=== PATIENT | male | born 1965 | race Caucasian/White ===

== ENCOUNTER 2017-06-25 16:50 | Inpatient (IN) | payer BC ==
[2017-06-25] MEDS ORDERED: ONDANSETRON PF 4 MG/2 ML VIAL. IV (17:45)
[2017-06-25] MEDS ORDERED: DEXTROSE 50% 25 GM / 50ML DISP.SYRIN. IV (17:45)
[2017-06-25] MEDS ORDERED: cefTRIAXone SODIUM 2 GM in IV DEXTROSE 5% 100 ML IV (18:00)
[2017-06-25] MEDS ORDERED: VANCOMYCIN 1.25 GM in IV DEXTROSE 5% 250 ML IV (18:00)
[2017-06-25] MEDS: cefTRIAXone IV Push 2 GM VIAL. IVP (20:04)
[2017-06-25] MEDS: VANCOMYCIN PER PHARMACY MC (20:12)
[2017-06-25 21:21] LABS: POC GLUCOSE 218 mg/dL (70-99)
[2017-06-25] MEDS: VANCOMYCIN 2 GM in IV DEXTROSE 5 %-0.2 % NACL 500 ML IV (22:13)
[2017-06-25] MEDS: HEPARIN PF for SUB-Q USE 5,000 UNIT/0.5 ML VIAL. SQ (22:22)
[2017-06-26] MEDS: VANCOMYCIN 2 GM in IV DEXTROSE 5 %-0.2 % NACL 500 ML IV (06:26)
[2017-06-26] MEDS: HEPARIN PF for SUB-Q USE 5,000 UNIT/0.5 ML VIAL. SQ ×3 (06:30→22:40)
[2017-06-26 06:56] LABS: POC GLUCOSE 212 mg/dL (70-99)
[2017-06-26 07:22] LABS: POC GLUCOSE 246 mg/dL (70-99)
[2017-06-26] MEDS: INSULIN ASPART 300 UNITS/3 ML INSULN.PEN SQ ×3 (07:59→17:26)
[2017-06-26 08:01] LABS: ADD MAN DIFF? NO
[2017-06-26 08:11] LABS: BASO # 0.1 x10^3/uL (0.0-0.2); BASO % 1 % (0-3); EOS # 0.2 x10^3/uL (0.0-0.7); EOS % 2 % (0-3); HEMATOCRIT 38.8 % (39.0-53.0); HEMOGLOBIN 13.1 g/dL (13.0-17.5); LYMPH # 1.3 x10^3/uL (1.0-4.8); LYMPH % 17 % (24-48); MEAN CORPUSCULAR HEMOGLOBIN 30 pg (25-35); MEAN CORPUSCULAR HGB CONC 34 g/dL (31-37); MEAN CORPUSCULAR VOLUME 88 fL (79-100); MONO # 0.7 x10^3/uL (0.0-1.1); MONO % 9 % (0-9); NEUT # 5.6 x10^3uL (1.8-7.7); NEUT % 71 % (31-73); PLATELET COUNT 269 x10^3/uL (140-400); RED BLOOD COUNT 4.43 x10^6/uL (4.30-5.70); RED CELL DISTRIBUTION WIDTH 13.6 % (11.5-14.5); WHITE BLOOD COUNT 7.8 x10^3/uL (4.0-11.0)
[2017-06-26 08:18] LABS: ANION GAP 9 (6-14); BLOOD UREA NITROGEN 10 mg/dL (8-26); CALCIUM 8.6 mg/dL (8.5-10.1); CARBON DIOXIDE 27 mmol/L (21-32); CHLORIDE 100 mmol/L (98-107); GFR 78.2; GLUCOSE 255 mg/dL (70-99); POTASSIUM 4.3 mmol/L (3.5-5.1); SODIUM 136 mmol/L (136-145)
[2017-06-26 11:11] LABS: POC GLUCOSE 244 mg/dL (70-99)
[2017-06-26 16:33] LABS: POC GLUCOSE 193 mg/dL (70-99)
[2017-06-26] MEDS: ALTEPLASE 2 MG VIAL INT CAT (17:16)
[2017-06-26] MEDS: LACTOBACILLUS RHAMNOSUS GG 1 CAPSULE. PO (20:42)
[2017-06-26 21:08] LABS: POC GLUCOSE 227 mg/dL (70-99)
[2017-06-27] MEDS: HEPARIN PF for SUB-Q USE 5,000 UNIT/0.5 ML VIAL. SQ ×2 (06:27→14:12)
[2017-06-27 06:38] LABS: ADD MAN DIFF? NO
[2017-06-27 07:17] LABS: BASO # 0.1 x10^3/uL (0.0-0.2); BASO % 1 % (0-3); EOS # 0.2 x10^3/uL (0.0-0.7); EOS % 4 % (0-3); HEMOGLOBIN 13.2 g/dL (13.0-17.5); LYMPH # 1.5 x10^3/uL (1.0-4.8); LYMPH % 23 % (24-48); MEAN CORPUSCULAR HEMOGLOBIN 29 pg (25-35); MEAN CORPUSCULAR HGB CONC 33 g/dL (31-37); MEAN CORPUSCULAR VOLUME 87 fL (79-100); MONO # 0.6 x10^3/uL (0.0-1.1); MONO % 10 % (0-9); NEUT # 4.2 x10^3uL (1.8-7.7); NEUT % 63 % (31-73); PLATELET COUNT 265 x10^3/uL (140-400); RED BLOOD COUNT 4.62 x10^6/uL (4.30-5.70); RED CELL DISTRIBUTION WIDTH 13.6 % (11.5-14.5); WHITE BLOOD COUNT 6.6 x10^3/uL (4.0-11.0)
[2017-06-27 07:18] LABS: ANION GAP 12 (6-14); BLOOD UREA NITROGEN 13 mg/dL (8-26); CARBON DIOXIDE 25 mmol/L (21-32); CHLORIDE 101 mmol/L (98-107); CREATININE 0.9 mg/dL (0.7-1.3); GFR 88.3; GLUCOSE 231 mg/dL (70-99); POTASSIUM 3.9 mmol/L (3.5-5.1); SODIUM 138 mmol/L (136-145)
[2017-06-27 07:32] LABS: POC GLUCOSE 229 mg/dL (70-99)
[2017-06-27] MEDS: MULTIVITAMIN with MINERAL TABLET. PO (08:34)
[2017-06-27] MEDS: ASCORBIC ACID 500 MG TABLET PO (08:34)
[2017-06-27] MEDS: INSULIN ASPART 300 UNITS/3 ML INSULN.PEN SQ ×4 (08:34→22:26)
[2017-06-27] MEDS: LACTOBACILLUS RHAMNOSUS GG 1 CAPSULE. PO ×2 (08:35→21:29)
[2017-06-27 11:21] LABS: POC GLUCOSE 245 mg/dL (70-99)
[2017-06-27 16:15] LABS: POC GLUCOSE 240 mg/dL (70-99)
[2017-06-27 21:31] LABS: POC GLUCOSE 220 mg/dL (70-99)
[2017-06-28 06:03] LABS: ADD MAN DIFF? NO
[2017-06-28 06:50] LABS: BASO # 0.1 x10^3/uL (0.0-0.2); BASO % 1 % (0-3); EOS # 0.3 x10^3/uL (0.0-0.7); EOS % 4 % (0-3); HEMATOCRIT 40.6 % (39.0-53.0); HEMOGLOBIN 13.6 g/dL (13.0-17.5); LYMPH # 2.1 x10^3/uL (1.0-4.8); LYMPH % 33 % (24-48); MEAN CORPUSCULAR HEMOGLOBIN 29 pg (25-35); MEAN CORPUSCULAR HGB CONC 33 g/dL (31-37); MEAN CORPUSCULAR VOLUME 86 fL (79-100); MONO # 0.6 x10^3/uL (0.0-1.1); MONO % 9 % (0-9); NEUT # 3.4 x10^3uL (1.8-7.7); NEUT % 53 % (31-73); PLATELET COUNT 271 x10^3/uL (140-400); RED BLOOD COUNT 4.71 x10^6/uL (4.30-5.70); RED CELL DISTRIBUTION WIDTH 13.4 % (11.5-14.5); WHITE BLOOD COUNT 6.4 x10^3/uL (4.0-11.0)
[2017-06-28] MEDS: IV RINGERS,LACTATED 1000ML 1,000 ML IV (06:55)
[2017-06-28] MEDS ORDERED: ONDANSETRON PF 4 MG/2 ML VIAL. IV (07:00)
[2017-06-28] MEDS ORDERED: fentaNYL PF VIAL 100 MCG/2 ML VIAL IV ×2 (07:00)
[2017-06-28] MEDS ORDERED: MORPHINE SULFATE 2 MG/ML DISP.SYRIN. IV (07:00)
[2017-06-28] MEDS ORDERED: LIDOCAINE 1% PF 2 ML VIAL. ID (07:00)
[2017-06-28] MEDS ORDERED: PROCHLORPERAZINE 10 MG/2 ML VIAL. IV (07:00)
[2017-06-28] MEDS ORDERED: HYDROmorphone 2 MG/ML VIAL IV (07:00)
[2017-06-28 07:03] LABS: ANION GAP 11 (6-14); BLOOD UREA NITROGEN 12 mg/dL (8-26); CALCIUM 8.7 mg/dL (8.5-10.1); CARBON DIOXIDE 25 mmol/L (21-32); CHLORIDE 101 mmol/L (98-107); GFR 78.2; GLUCOSE 229 mg/dL (70-99); SODIUM 137 mmol/L (136-145)
[2017-06-28 07:31] LABS: POC GLUCOSE 235 mg/dL (70-99)
[2017-06-28] MEDS: INSULIN ASPART 300 UNITS/3 ML INSULN.PEN SQ ×3 (07:35→17:20)
[2017-06-28] MEDS ORDERED: fentaNYL PF VIAL 250 MCG/5 ML VIAL (08:07)
[2017-06-28] MEDS ORDERED: MIDAZOLAM HCL/PF 2 MG/2 ML VIAL. (08:10)
[2017-06-28] MEDS: LIDOCAINE 1% PF 48 ML, SODIUM BICARBONATE VIAL 12 MEQ in TOTAL VOLUME SYRINGE 60 ML ID (08:19)
[2017-06-28] MEDS ORDERED: PROPOFOL 20 ML IV (08:25)
[2017-06-28] MEDS ORDERED: INSULIN ASPART 100 UNIT/ML 10ML VIAL. SQ (08:51)
[2017-06-28 08:53] LABS: POC GLUCOSE 256 mg/dL (70-99)
[2017-06-28] MEDS: INSULIN ASPART 100 UNIT/ML 10ML VIAL. SQ (09:20)
[2017-06-28] MEDS: ASCORBIC ACID 500 MG TABLET PO (10:01)
[2017-06-28] MEDS: LACTOBACILLUS RHAMNOSUS GG 1 CAPSULE. PO ×2 (10:01→20:45)
[2017-06-28] MEDS: MULTIVITAMIN with MINERAL TABLET. PO (10:02)
[2017-06-28 11:09] LABS: POC GLUCOSE 263 mg/dL (70-99)
[2017-06-28] MEDS: INSULIN DETEMIR 300 UNITS/3 ML INSULN.PEN. SQ ×2 (12:53→20:49)
[2017-06-28] MEDS: TESTOSTERONE CYPIONATE 200 MG/ML VIAL. IM ×2 (14:00→16:10)
[2017-06-28] MEDS: ERGOCALCIFEROL (VITAMIN D2) 50,000 UNIT CAPSULE. PO (15:13)
[2017-06-28] MEDS: diphenhydrAMINE HCL 25 MG CAPSULE PO (16:10)
[2017-06-28] MEDS: HEPARIN PF for SUB-Q USE 5,000 UNIT/0.5 ML VIAL. SQ ×2 (16:20→22:07)
[2017-06-28 16:25] LABS: POC GLUCOSE 258 mg/dL (70-99)
[2017-06-28 20:44] LABS: POC GLUCOSE 268 mg/dL (70-99)
[2017-06-29] MEDS: HEPARIN PF for SUB-Q USE 5,000 UNIT/0.5 ML VIAL. SQ ×3 (05:57→22:07)
[2017-06-29 06:03] LABS: ADD MAN DIFF? NO
[2017-06-29 06:05] LABS: BASO # 0.1 x10^3/uL (0.0-0.2); BASO % 2 % (0-3); EOS # 0.3 x10^3/uL (0.0-0.7); EOS % 5 % (0-3); HEMATOCRIT 40.1 % (39.0-53.0); HEMOGLOBIN 13.7 g/dL (13.0-17.5); LYMPH # 2.2 x10^3/uL (1.0-4.8); LYMPH % 35 % (24-48); MEAN CORPUSCULAR HEMOGLOBIN 30 pg (25-35); MEAN CORPUSCULAR HGB CONC 34 g/dL (31-37); MEAN CORPUSCULAR VOLUME 87 fL (79-100); MONO # 0.6 x10^3/uL (0.0-1.1); MONO % 9 % (0-9); NEUT # 3.1 x10^3uL (1.8-7.7); NEUT % 50 % (31-73); PLATELET COUNT 259 x10^3/uL (140-400); RED CELL DISTRIBUTION WIDTH 13.6 % (11.5-14.5); WHITE BLOOD COUNT 6.2 x10^3/uL (4.0-11.0)
[2017-06-29 06:31] LABS: ANION GAP 10 (6-14); BLOOD UREA NITROGEN 14 mg/dL (8-26); CALCIUM 8.7 mg/dL (8.5-10.1); CARBON DIOXIDE 27 mmol/L (21-32); CHLORIDE 102 mmol/L (98-107); GFR 78.2; GLUCOSE 264 mg/dL (70-99); POTASSIUM 4.1 mmol/L (3.5-5.1); SODIUM 139 mmol/L (136-145)
[2017-06-29 07:23] LABS: POC GLUCOSE 246 mg/dL (70-99)
[2017-06-29] MEDS: INSULIN ASPART 300 UNITS/3 ML INSULN.PEN SQ ×3 (08:19→17:40)
[2017-06-29] MEDS: MULTIVITAMIN with MINERAL TABLET. PO (09:21)
[2017-06-29] MEDS: ASCORBIC ACID 500 MG TABLET PO (09:21)
[2017-06-29] MEDS: LACTOBACILLUS RHAMNOSUS GG 1 CAPSULE. PO ×2 (09:21→21:59)
[2017-06-29 11:07] LABS: POC GLUCOSE 246 mg/dL (70-99)
[2017-06-29 16:40] LABS: POC GLUCOSE 192 mg/dL (70-99)
[2017-06-29 21:19] LABS: POC GLUCOSE 268 mg/dL (70-99)
[2017-06-29] MEDS: INSULIN DETEMIR 300 UNITS/3 ML INSULN.PEN. SQ (22:08)
[2017-06-30] MEDS: HEPARIN PF for SUB-Q USE 5,000 UNIT/0.5 ML VIAL. SQ ×3 (02:45→22:06)
[2017-06-30] MEDS: ACETAMINOPHEN 325 MG TABLET. PO ×2 (03:48→22:08)
[2017-06-30 05:56] LABS: ADD MAN DIFF? NO
[2017-06-30 06:19] LABS: ANION GAP 8 (6-14); BLOOD UREA NITROGEN 14 mg/dL (8-26); CALCIUM 8.1 mg/dL (8.5-10.1); CARBON DIOXIDE 25 mmol/L (21-32); CHLORIDE 104 mmol/L (98-107); CREATININE 0.9 mg/dL (0.7-1.3); GFR 88.3; GLUCOSE 234 mg/dL (70-99); POTASSIUM 4.1 mmol/L (3.5-5.1); SODIUM 137 mmol/L (136-145)
[2017-06-30 08:02] LABS: BASO # 0.1 x10^3/uL (0.0-0.2); BASO % 2 % (0-3); EOS # 0.3 x10^3/uL (0.0-0.7); EOS % 5 % (0-3); HEMATOCRIT 40.2 % (39.0-53.0); HEMOGLOBIN 13.4 g/dL (13.0-17.5); LYMPH # 1.9 x10^3/uL (1.0-4.8); LYMPH % 34 % (24-48); MEAN CORPUSCULAR HEMOGLOBIN 29 pg (25-35); MEAN CORPUSCULAR HGB CONC 33 g/dL (31-37); MEAN CORPUSCULAR VOLUME 88 fL (79-100); MONO # 0.5 x10^3/uL (0.0-1.1); MONO % 10 % (0-9); NEUT # 2.9 x10^3uL (1.8-7.7); NEUT % 50 % (31-73); PLATELET COUNT 261 x10^3/uL (140-400); RED BLOOD COUNT 4.56 x10^6/uL (4.30-5.70); RED CELL DISTRIBUTION WIDTH 13.8 % (11.5-14.5); WHITE BLOOD COUNT 5.7 x10^3/uL (4.0-11.0)
[2017-06-30] MEDS: INSULIN ASPART 300 UNITS/3 ML INSULN.PEN SQ ×3 (09:32→18:48)
[2017-06-30 09:48] LABS: INR 1.1 (0.8-1.1); PARTIAL THROMBOPLASTIN TIME 28 SEC (24-38); PROTHROMBIN TIME PATIENT 13.5 SEC (11.7-14.0)
[2017-06-30] MEDS ORDERED: ONDANSETRON PF 4 MG/2 ML VIAL. IV (11:45)
[2017-06-30] MEDS ORDERED: fentaNYL PF VIAL 100 MCG/2 ML VIAL IV ×2 (11:45)
[2017-06-30] MEDS ORDERED: PROCHLORPERAZINE 10 MG/2 ML VIAL. IV (11:45)
[2017-06-30] MEDS ORDERED: HYDROmorphone 2 MG/ML VIAL IV (11:45)
[2017-06-30] MEDS ORDERED: MORPHINE SULFATE 2 MG/ML DISP.SYRIN. IV (11:45)
[2017-06-30 11:55] LABS: POC GLUCOSE 226 mg/dL (70-99)
[2017-06-30 12:03] LABS: POC GLUCOSE 176 mg/dL (70-99)
[2017-06-30] MEDS: IV RINGERS,LACTATED 1000ML 1,000 ML IV (12:14)
[2017-06-30] MEDS: LIDOCAINE 1% PF 2 ML VIAL. ID (12:15)
[2017-06-30] MEDS ORDERED: BUPIVACAINE MPF 0.5% 30 ML VIAL. (12:49)
[2017-06-30] MEDS ORDERED: PROPOFOL 20 ML IV (12:50)
[2017-06-30] MEDS ORDERED: fentaNYL PF VIAL 100 MCG/2 ML VIAL (12:50)
[2017-06-30] MEDS: LIDOCAINE 1%/EPI 1:100,000 20 ML VIAL. INJ (13:16)
[2017-06-30] MEDS ORDERED: ENOXAPARIN 40 MG/0.4 ML SYRINGE. SQ (14:00)
[2017-06-30] MEDS ORDERED: oxyCODONE/APAP 7.5/325 1 TAB TABLET PO (14:00)
[2017-06-30] MEDS ORDERED: LIDOCAINE 1%/EPI 1:100,000 20 ML VIAL. (14:19)
[2017-06-30] MEDS: LACTOBACILLUS RHAMNOSUS GG 1 CAPSULE. PO ×2 (14:59→22:00)
[2017-06-30] MEDS: MULTIVITAMIN with MINERAL TABLET. PO (15:00)
[2017-06-30] MEDS: ASCORBIC ACID 500 MG TABLET PO (15:00)
[2017-06-30 15:11] LABS: POC GLUCOSE 168 mg/dL (70-99)
[2017-06-30 18:21] LABS: POC GLUCOSE 283 mg/dL (70-99)
[2017-06-30 21:40] LABS: POC GLUCOSE 206 mg/dL (70-99)
[2017-06-30] MEDS: INSULIN DETEMIR 300 UNITS/3 ML INSULN.PEN. SQ (22:07)
[2017-07-01 06:11] LABS: ADD MAN DIFF? NO
[2017-07-01] MEDS: HEPARIN PF for SUB-Q USE 5,000 UNIT/0.5 ML VIAL. SQ ×3 (06:19→21:26)
[2017-07-01 06:30] LABS: ANION GAP 8 (6-14); BLOOD UREA NITROGEN 13 mg/dL (8-26); CALCIUM 8.6 mg/dL (8.5-10.1); CARBON DIOXIDE 27 mmol/L (21-32); CHLORIDE 103 mmol/L (98-107); GFR 78.2; GLUCOSE 233 mg/dL (70-99); SODIUM 138 mmol/L (136-145)
[2017-07-01 06:38] LABS: BASO # 0.1 x10^3/uL (0.0-0.2); BASO % 1 % (0-3); EOS # 0.2 x10^3/uL (0.0-0.7); EOS % 3 % (0-3); HEMATOCRIT 38.4 % (39.0-53.0); LYMPH % 30 % (24-48); MEAN CORPUSCULAR HEMOGLOBIN 29 pg (25-35); MEAN CORPUSCULAR HGB CONC 34 g/dL (31-37); MEAN CORPUSCULAR VOLUME 85 fL (79-100); MONO # 0.6 x10^3/uL (0.0-1.1); MONO % 9 % (0-9); NEUT # 3.8 x10^3uL (1.8-7.7); NEUT % 57 % (31-73); PLATELET COUNT 248 x10^3/uL (140-400); RED BLOOD COUNT 4.54 x10^6/uL (4.30-5.70); RED CELL DISTRIBUTION WIDTH 13.6 % (11.5-14.5); WHITE BLOOD COUNT 6.7 x10^3/uL (4.0-11.0)
[2017-07-01 07:40] LABS: POC GLUCOSE 213 mg/dL (70-99)
[2017-07-01] MEDS: MULTIVITAMIN with MINERAL TABLET. PO (09:53)
[2017-07-01] MEDS: ASCORBIC ACID 500 MG TABLET PO (09:53)
[2017-07-01] MEDS: LACTOBACILLUS RHAMNOSUS GG 1 CAPSULE. PO ×2 (09:53→21:29)
[2017-07-01] MEDS: INSULIN ASPART 300 UNITS/3 ML INSULN.PEN SQ ×3 (10:05→17:46)
[2017-07-01 11:18] LABS: POC GLUCOSE 258 mg/dL (70-99)
[2017-07-01 16:54] LABS: POC GLUCOSE 166 mg/dL (70-99)
[2017-07-01] MEDS: NORMAL SALINE IV (17:39)
[2017-07-01] MEDS: DAPTOMYCIN IV (17:39)
[2017-07-01 21:25] LABS: POC GLUCOSE 241 mg/dL (70-99)
[2017-07-01] MEDS: INSULIN DETEMIR 300 UNITS/3 ML INSULN.PEN. SQ (21:28)
[2017-07-02 04:17] LABS: ADD MAN DIFF? NO
[2017-07-02 04:19] LABS: BASO # 0.1 x10^3/uL (0.0-0.2); BASO % 1 % (0-3); EOS # 0.2 x10^3/uL (0.0-0.7); EOS % 4 % (0-3); HEMATOCRIT 38.8 % (39.0-53.0); HEMOGLOBIN 13.1 g/dL (13.0-17.5); LYMPH # 2.1 x10^3/uL (1.0-4.8); LYMPH % 29 % (24-48); MEAN CORPUSCULAR HEMOGLOBIN 29 pg (25-35); MEAN CORPUSCULAR HGB CONC 34 g/dL (31-37); MEAN CORPUSCULAR VOLUME 86 fL (79-100); MONO # 0.7 x10^3/uL (0.0-1.1); MONO % 10 % (0-9); NEUT % 56 % (31-73); PLATELET COUNT 219 x10^3/uL (140-400); RED BLOOD COUNT 4.51 x10^6/uL (4.30-5.70); RED CELL DISTRIBUTION WIDTH 13.8 % (11.5-14.5); WHITE BLOOD COUNT 7.1 x10^3/uL (4.0-11.0)
[2017-07-02 04:52] LABS: ANION GAP 8 (6-14); BLOOD UREA NITROGEN 14 mg/dL (8-26); CALCIUM 8.3 mg/dL (8.5-10.1); CARBON DIOXIDE 26 mmol/L (21-32); CHLORIDE 103 mmol/L (98-107); CREATININE 0.9 mg/dL (0.7-1.3); GFR 88.3; GLUCOSE 200 mg/dL (70-99); SODIUM 137 mmol/L (136-145)
[2017-07-02] MEDS: HEPARIN PF for SUB-Q USE 5,000 UNIT/0.5 ML VIAL. SQ ×3 (06:00→22:41)
[2017-07-02 07:30] LABS: POC GLUCOSE 204 mg/dL (70-99)
[2017-07-02] MEDS: ASCORBIC ACID 500 MG TABLET PO (08:48)
[2017-07-02] MEDS: MULTIVITAMIN with MINERAL TABLET. PO (08:48)
[2017-07-02] MEDS: LACTOBACILLUS RHAMNOSUS GG 1 CAPSULE. PO ×2 (08:48→22:39)
[2017-07-02] MEDS: INSULIN ASPART 300 UNITS/3 ML INSULN.PEN SQ ×3 (08:54→18:03)
[2017-07-02 11:34] LABS: POC GLUCOSE 221 mg/dL (70-99)
[2017-07-02 16:26] LABS: POC GLUCOSE 194 mg/dL (70-99)
[2017-07-02] MEDS: DAPTOMYCIN IV (18:06)
[2017-07-02] MEDS: NORMAL SALINE IV (18:06)
[2017-07-02 20:59] LABS: POC GLUCOSE 237 mg/dL (70-99)
[2017-07-02] MEDS: INSULIN DETEMIR 300 UNITS/3 ML INSULN.PEN. SQ (22:43)
[2017-07-03 05:44] LABS: ADD MAN DIFF? NO
[2017-07-03 05:55] LABS: BASO # 0.1 x10^3/uL (0.0-0.2); BASO % 1 % (0-3); EOS # 0.3 x10^3/uL (0.0-0.7); EOS % 4 % (0-3); HEMATOCRIT 39.8 % (39.0-53.0); HEMOGLOBIN 13.3 g/dL (13.0-17.5); LYMPH # 2.1 x10^3/uL (1.0-4.8); LYMPH % 28 % (24-48); MEAN CORPUSCULAR HEMOGLOBIN 29 pg (25-35); MEAN CORPUSCULAR HGB CONC 33 g/dL (31-37); MEAN CORPUSCULAR VOLUME 87 fL (79-100); MONO # 0.7 x10^3/uL (0.0-1.1); MONO % 10 % (0-9); NEUT # 4.2 x10^3uL (1.8-7.7); NEUT % 58 % (31-73); PLATELET COUNT 214 x10^3/uL (140-400); RED BLOOD COUNT 4.58 x10^6/uL (4.30-5.70); RED CELL DISTRIBUTION WIDTH 13.8 % (11.5-14.5); WHITE BLOOD COUNT 7.3 x10^3/uL (4.0-11.0)
[2017-07-03] MEDS: HEPARIN PF for SUB-Q USE 5,000 UNIT/0.5 ML VIAL. SQ ×2 (06:12→15:05)
[2017-07-03 06:25] LABS: ANION GAP 11 (6-14); BLOOD UREA NITROGEN 15 mg/dL (8-26); CALCIUM 8.4 mg/dL (8.5-10.1); CARBON DIOXIDE 25 mmol/L (21-32); CHLORIDE 103 mmol/L (98-107); CREATININE 0.9 mg/dL (0.7-1.3); GFR 88.3; GLUCOSE 197 mg/dL (70-99); POTASSIUM 3.7 mmol/L (3.5-5.1); SODIUM 139 mmol/L (136-145)
[2017-07-03 07:46] LABS: POC GLUCOSE 193 mg/dL (70-99)
[2017-07-03] MEDS: LACTOBACILLUS RHAMNOSUS GG 1 CAPSULE. PO (08:58)
[2017-07-03] MEDS: MULTIVITAMIN with MINERAL TABLET. PO (08:58)
[2017-07-03] MEDS: ASCORBIC ACID 500 MG TABLET PO (08:58)
[2017-07-03] MEDS: INSULIN ASPART 300 UNITS/3 ML INSULN.PEN SQ ×3 (09:04→16:37)
[2017-07-03 09:55] LABS: ALBUMIN 2.8 g/dL (3.4-5.0); ALK PHOS 59 U/L (46-116); ALT (SGPT) 22 U/L (16-63); AST (SGOT) 17 U/L (15-37); DIRECT BILIRUBIN 0.1 mg/dL (0.0-0.2); LACTATE DEHYDROGENASE 219 U/L (85-227); TOTAL BILIRUBIN 0.3 mg/dL (0.2-1.0); TOTAL PROTEIN 7.5 g/dL (6.4-8.2)
[2017-07-03 11:11] LABS: POC GLUCOSE 276 mg/dL (70-99)
[2017-07-03 16:15] LABS: POC GLUCOSE 176 mg/dL (70-99)
[2017-07-03] MEDS: DAPTOMYCIN IV (16:30)
[2017-07-03] MEDS: NORMAL SALINE IV (16:30)
[2017-07-05 07:13] LABS: HCV ANTIBODY 0.1 s/co ratio (0.0-0.9); HEP A IGM ABDY Negative (Negative); HEP B SURFACE AG Negative (Negative)
[2017-07-05 13:09] LABS: HIV-1 RNA BY PCR <20 copies/mL (.)
[2017-07-06 00:07] LABS: BETA 2 MICROGLOB 1.4 mg/L (0.6-2.4)
== END 2017-07-03 19:30 | disposition home or self-care (01) | DRG 854 ==
LOC: 5 SOUTH 16:50
PROVIDERS: Internal Medicine
PROC: 0Y6Q0Z3 Detachment at Left 1st Toe, Low, Open Approach (ICD-10-PCS; principal; 2017-06-28 08:00)
PROC: 0WBF0ZZ Excision of Abdominal Wall, Open Approach (ICD-10-PCS; 2017-06-28 08:03)
DX: A41.01 Sepsis due to Methicillin susceptible Staphylococcus aureus (principal); C85.10 Unspecified B-cell lymphoma, unspecified site; E11.42 Type 2 diabetes mellitus with diabetic polyneuropathy; E11.51 Type 2 diabetes mellitus with diabetic peripheral angiopathy without gangrene; L03.116 Cellulitis of left lower limb; M86.8X8 Other osteomyelitis, other site; E11.628 Type 2 diabetes mellitus with other skin complications; E11.65 Type 2 diabetes mellitus with hyperglycemia; E11.69 Type 2 diabetes mellitus with other specified complication; Z68.38 Body mass index [BMI] 38.0-38.9, adult; E78.5 Hyperlipidemia, unspecified; I10 Essential (primary) hypertension; J45.909 Unspecified asthma, uncomplicated; Z79.4 Long term (current) use of insulin; Z80.8 Family history of malignant neoplasm of other organs or systems; Z83.3 Family history of diabetes mellitus; Z86.14 Personal history of Methicillin resistant Staphylococcus aureus infection; Z89.412 Acquired absence of left great toe; E66.01 Morbid (severe) obesity due to excess calories; E86.0 Dehydration
CPT/HCPCS: 36415; 76705; 80048; 80074; 80076; 82962; 83615; 84550; 85025; 85610; 85730; 87040; 87071; 87075; 87205; 87536; 88305; 88311; 88341; 88342; 88360; 93306; 97116-GP; 97162-GP; 97530-GP; J0690; J0696; J0878; J1071; J1815; J2250; J2704; J2997; J3010; J3370; J3490; J7120; Q0163

== ENCOUNTER 2017-07-17 18:08 | Emergency (ER) | payer BC ==
[2017-07-17] MEDS: RIVAROXABAN 15 MG TABLET. PO ×2 (19:42)
== END 2017-07-17 19:53 | disposition home or self-care (01) ==
LOC: ER 18:08
DX: I82.A11 Acute embolism and thrombosis of right axillary vein (principal); J45.909 Unspecified asthma, uncomplicated; E11.9 Type 2 diabetes mellitus without complications; I10 Essential (primary) hypertension
CPT/HCPCS: 99284

== ENCOUNTER → 2017-07-17 | Outpatient (CLI) | payer BC | END | disposition home or self-care (01) | LOC: US 16:02 | DX: I82.621 Acute embolism and thrombosis of deep veins of right upper extremity (principal) | CPT/HCPCS: 93971 ==

== ENCOUNTER → 2017-07-21 | Outpatient (CLI) | payer BC | END | disposition home or self-care (01) | LOC: PMGWOUND 09:00 | DX: T87.89 Other complications of amputation stump (principal); E11.621 Type 2 diabetes mellitus with foot ulcer; L97.524 Non-pressure chronic ulcer of other part of left foot with necrosis of bone; E11.51 Type 2 diabetes mellitus with diabetic peripheral angiopathy without gangrene; F41.9 Anxiety disorder, unspecified; I10 Essential (primary) hypertension; F32.9 Major depressive disorder, single episode, unspecified; E66.01 Morbid (severe) obesity due to excess calories; E78.00 Pure hypercholesterolemia, unspecified; E11.69 Type 2 diabetes mellitus with other specified complication; M86.8X7 Other osteomyelitis, ankle and foot; I25.10 Atherosclerotic heart disease of native coronary artery without angina pectoris; E11.42 Type 2 diabetes mellitus with diabetic polyneuropathy; J45.909 Unspecified asthma, uncomplicated; Z89.422 Acquired absence of other left toe(s); Z89.412 Acquired absence of left great toe; Z68.38 Body mass index [BMI] 38.0-38.9, adult; Z79.4 Long term (current) use of insulin; Y83.8 Other surgical procedures as the cause of abnormal reaction of the patient, or of later complication, without mention of misadventure at the time of the procedure | CPT/HCPCS: 97597 ==

== ENCOUNTER 2017-07-22 07:08 | Outpatient (CLI) | payer BC ==
[2017-07-22] MEDS ORDERED: LIDOCAINE WITH 8.4% SOD BICARB 3 ML DISP.SYRIN. ×4 (07:33→08:30)
[2017-07-22 07:41] LABS: ADD MAN DIFF? NO
[2017-07-22 07:49] LABS: POC GLUCOSE 219 mg/dL (70-99)
[2017-07-22 07:49] LABS: BASO # 0.1 x10^3/uL (0.0-0.2); BASO % 2 % (0-3); EOS # 0.2 x10^3/uL (0.0-0.7); EOS % 4 % (0-3); HEMATOCRIT 43.3 % (39.0-53.0); HEMOGLOBIN 14.5 g/dL (13.0-17.5); LYMPH # 1.9 x10^3/uL (1.0-4.8); LYMPH % 29 % (24-48); MEAN CORPUSCULAR HEMOGLOBIN 29 pg (25-35); MEAN CORPUSCULAR HGB CONC 34 g/dL (31-37); MEAN CORPUSCULAR VOLUME 87 fL (79-100); MONO # 0.6 x10^3/uL (0.0-1.1); MONO % 9 % (0-9); NEUT # 3.7 x10^3uL (1.8-7.7); NEUT % 56 % (31-73); PLATELET COUNT 241 x10^3/uL (140-400); RED BLOOD COUNT 4.95 x10^6/uL (4.30-5.70); WHITE BLOOD COUNT 6.6 x10^3/uL (4.0-11.0)
[2017-07-22 07:58] LABS: INR 1.3 (0.8-1.1); PROTHROMBIN TIME PATIENT 15.1 SEC (11.7-14.0)
[2017-07-22] MEDS ORDERED: MIDAZOLAM HCL/PF 5 MG/5 ML VIAL. ×2 (08:15)
[2017-07-22] MEDS ORDERED: fentaNYL PF VIAL 250 MCG/5 ML VIAL ×2 (08:15)
[2017-07-22] MEDS: fentaNYL PF VIAL 250 MCG/5 ML VIAL IV ×2 (08:27)
[2017-07-22] MEDS: LIDOCAINE WITH 8.4% SOD BICARB 3 ML DISP.SYRIN. IJ ×2 (08:43)
[2017-07-22] MEDS: MIDAZOLAM HCL/PF 5 MG/5 ML VIAL. IV ×2 (08:44)
== END 2017-07-22 10:00 | disposition home or self-care (01) ==
LOC: INTRAD 07:08
DX: C85.90 Non-Hodgkin lymphoma, unspecified, unspecified site (principal); E11.42 Type 2 diabetes mellitus with diabetic polyneuropathy; E78.00 Pure hypercholesterolemia, unspecified; I10 Essential (primary) hypertension; J45.909 Unspecified asthma, uncomplicated; F41.9 Anxiety disorder, unspecified; F32.9 Major depressive disorder, single episode, unspecified; Z86.14 Personal history of Methicillin resistant Staphylococcus aureus infection; Z79.899 Other long term (current) drug therapy; Z86.39 Personal history of other endocrine, nutritional and metabolic disease
CPT/HCPCS: 36415; 38222; 82962; 85025; 85610; 88184; 88185; 88237; 88305; 88311; 88313; 88341; 88342; J2250; J3010

== ENCOUNTER → 2017-07-23 | Outpatient (CLI) | payer BC | END | disposition home or self-care (01) | LOC: PETSC 11:58 | DX: C83.30 Diffuse large B-cell lymphoma, unspecified site (principal); K76.0 Fatty (change of) liver, not elsewhere classified; K42.9 Umbilical hernia without obstruction or gangrene; J34.1 Cyst and mucocele of nose and nasal sinus; R16.1 Splenomegaly, not elsewhere classified; Z85.79 Personal history of other malignant neoplasms of lymphoid, hematopoietic and related tissues | CPT/HCPCS: 78815; A9552 ==

== ENCOUNTER → 2017-07-30 | Outpatient (CLI) | payer BC | END | disposition home or self-care (01) | LOC: PMGWOUND 09:00 | DX: T87.89 Other complications of amputation stump (principal); T81.31XD Disruption of external operation (surgical) wound, not elsewhere classified, subsequent encounter; E11.621 Type 2 diabetes mellitus with foot ulcer; L97.524 Non-pressure chronic ulcer of other part of left foot with necrosis of bone; J45.909 Unspecified asthma, uncomplicated; E11.42 Type 2 diabetes mellitus with diabetic polyneuropathy; E78.00 Pure hypercholesterolemia, unspecified; F41.9 Anxiety disorder, unspecified; E11.69 Type 2 diabetes mellitus with other specified complication; M86.8X7 Other osteomyelitis, ankle and foot; I10 Essential (primary) hypertension; F32.9 Major depressive disorder, single episode, unspecified; E11.51 Type 2 diabetes mellitus with diabetic peripheral angiopathy without gangrene; E11.65 Type 2 diabetes mellitus with hyperglycemia; E66.01 Morbid (severe) obesity due to excess calories; Z68.38 Body mass index [BMI] 38.0-38.9, adult; Z79.4 Long term (current) use of insulin; Y83.5 Amputation of limb(s) as the cause of abnormal reaction of the patient, or of later complication, without mention of misadventure at the time of the procedure | CPT/HCPCS: 11042; 97597 ==

== ENCOUNTER → 2017-08-04 | Outpatient (CLI) | payer BC | END | disposition home or self-care (01) | LOC: PMGWOUND 09:00 | DX: T87.89 Other complications of amputation stump (principal); T81.31XD Disruption of external operation (surgical) wound, not elsewhere classified, subsequent encounter; E11.621 Type 2 diabetes mellitus with foot ulcer; L97.524 Non-pressure chronic ulcer of other part of left foot with necrosis of bone; J45.909 Unspecified asthma, uncomplicated; E11.42 Type 2 diabetes mellitus with diabetic polyneuropathy; E78.00 Pure hypercholesterolemia, unspecified; F41.9 Anxiety disorder, unspecified; E11.69 Type 2 diabetes mellitus with other specified complication; M86.8X7 Other osteomyelitis, ankle and foot; I10 Essential (primary) hypertension; F32.9 Major depressive disorder, single episode, unspecified; E11.51 Type 2 diabetes mellitus with diabetic peripheral angiopathy without gangrene; E11.65 Type 2 diabetes mellitus with hyperglycemia; E66.01 Morbid (severe) obesity due to excess calories; Z68.38 Body mass index [BMI] 38.0-38.9, adult; Z89.422 Acquired absence of other left toe(s); Z79.4 Long term (current) use of insulin; Y83.5 Amputation of limb(s) as the cause of abnormal reaction of the patient, or of later complication, without mention of misadventure at the time of the procedure; Y83.8 Other surgical procedures as the cause of abnormal reaction of the patient, or of later complication, without mention of misadventure at the time of the procedure | CPT/HCPCS: 11042 ==

== ENCOUNTER → 2017-08-05 | Day surgery (SDC) | payer BC ==
[~2017-08-05] MED LIST: HYDROmorphone 2 MG/ML VIAL IV; INSULIN ASPART 100 UNIT/ML 10ML VIAL. SQ; INSULIN REGULAR 100 UNIT/ML 10ML VIAL. IV; LIDOCAINE 1% PF 2 ML VIAL. ID; MIDAZOLAM HCL/PF 2 MG/2 ML VIAL.; MORPHINE SULFATE 2 MG/ML DISP.SYRIN. IV; NEOMY/BACITR/POLYMYXIN OINT PACKET. TP; ONDANSETRON PF 4 MG/2 ML VIAL. IV; PROCHLORPERAZINE 10 MG/2 ML VIAL. IV; ceFAZolin 2GM PREMIX 2 GM/50 ML BAG IV; fentaNYL PF VIAL 100 MCG/2 ML VIAL; fentaNYL PF VIAL 100 MCG/2 ML VIAL IV; fentaNYL PF VIAL 250 MCG/5 ML VIAL
[2017-08-05 07:41] LABS: POC GLUCOSE 250 mg/dL (70-99)
[2017-08-05] MEDS: IV RINGERS,LACTATED 1000ML 1,000 ML IV (07:42)
[2017-08-05] MEDS: BUPIVAC MPF-EPI 0.5%-1:200000 30 ML VIAL. INJ (08:15)
[2017-08-05] MEDS: BUPIVACAINE 0.5% 50 ML VIAL. (08:15)
[2017-08-05] MEDS: HEPARIN SODIUM 5,000 UNIT in IV NORMAL SALINE 500ML BAG 500 ML IRR (08:15)
[2017-08-05 08:59] LABS: POC GLUCOSE 258 mg/dL (70-99)
[2017-08-05] MEDS: INSULIN ASPART 100 UNIT/ML 10ML VIAL. SQ (10:04)
[2017-08-05] MEDS: oxyCODONE/APAP 7.5/325 1 TAB TABLET PO (10:22)
== END | disposition home or self-care (01) ==
LOC: SURG 06:40
DX: Z45.2 Encounter for adjustment and management of vascular access device (principal); Z85.72 Personal history of non-Hodgkin lymphomas; Z90.89 Acquired absence of other organs; E11.42 Type 2 diabetes mellitus with diabetic polyneuropathy; I25.10 Atherosclerotic heart disease of native coronary artery without angina pectoris; I10 Essential (primary) hypertension; J45.909 Unspecified asthma, uncomplicated; E78.00 Pure hypercholesterolemia, unspecified; F32.9 Major depressive disorder, single episode, unspecified; F41.9 Anxiety disorder, unspecified; Z91.012 Allergy to eggs; Z91.011 Allergy to milk products; E66.01 Morbid (severe) obesity due to excess calories; Z68.38 Body mass index [BMI] 38.0-38.9, adult; M86.9 Osteomyelitis, unspecified; F10.99 Alcohol use, unspecified with unspecified alcohol-induced disorder
CPT/HCPCS: 36556; 71045; 82962; C1769; C1788; J0690; J1644; J1815; J2250; J3010; J3490; J7040

== ENCOUNTER → 2017-08-11 | Outpatient (CLI) | payer BC | END | disposition home or self-care (01) | LOC: PMGWOUND 09:08 | DX: T81.31XD Disruption of external operation (surgical) wound, not elsewhere classified, subsequent encounter (principal); E11.621 Type 2 diabetes mellitus with foot ulcer; L97.524 Non-pressure chronic ulcer of other part of left foot with necrosis of bone; F41.9 Anxiety disorder, unspecified; I10 Essential (primary) hypertension; F32.9 Major depressive disorder, single episode, unspecified; E66.01 Morbid (severe) obesity due to excess calories; E78.00 Pure hypercholesterolemia, unspecified; E11.69 Type 2 diabetes mellitus with other specified complication; M86.8X7 Other osteomyelitis, ankle and foot; E11.42 Type 2 diabetes mellitus with diabetic polyneuropathy; J45.909 Unspecified asthma, uncomplicated; Z89.422 Acquired absence of other left toe(s); Z89.412 Acquired absence of left great toe; Z68.38 Body mass index [BMI] 38.0-38.9, adult; Z79.4 Long term (current) use of insulin; Y83.8 Other surgical procedures as the cause of abnormal reaction of the patient, or of later complication, without mention of misadventure at the time of the procedure | CPT/HCPCS: 11042 ==

== ENCOUNTER → 2017-08-17 | Outpatient (CLI) | payer OTHER, BC | END | disposition home or self-care (01) | LOC: PMGWOUND 07:51 | DX: T87.89 Other complications of amputation stump (principal); E11.621 Type 2 diabetes mellitus with foot ulcer; L97.524 Non-pressure chronic ulcer of other part of left foot with necrosis of bone; F41.9 Anxiety disorder, unspecified; I10 Essential (primary) hypertension; F32.9 Major depressive disorder, single episode, unspecified; E66.01 Morbid (severe) obesity due to excess calories; E78.00 Pure hypercholesterolemia, unspecified; E11.69 Type 2 diabetes mellitus with other specified complication; M86.8X7 Other osteomyelitis, ankle and foot; E11.42 Type 2 diabetes mellitus with diabetic polyneuropathy; J45.909 Unspecified asthma, uncomplicated; Z89.422 Acquired absence of other left toe(s); Z89.412 Acquired absence of left great toe; Z68.38 Body mass index [BMI] 38.0-38.9, adult; Z79.4 Long term (current) use of insulin; Y83.5 Amputation of limb(s) as the cause of abnormal reaction of the patient, or of later complication, without mention of misadventure at the time of the procedure | CPT/HCPCS: 97597 ==

== ENCOUNTER → 2017-08-24 | Outpatient (CLI) | payer OTHER | END | disposition home or self-care (01) | LOC: PMGWOUND 08:13 | DX: T87.89 Other complications of amputation stump (principal); E11.621 Type 2 diabetes mellitus with foot ulcer; L97.524 Non-pressure chronic ulcer of other part of left foot with necrosis of bone; E11.51 Type 2 diabetes mellitus with diabetic peripheral angiopathy without gangrene; F41.9 Anxiety disorder, unspecified; I10 Essential (primary) hypertension; F32.9 Major depressive disorder, single episode, unspecified; E66.01 Morbid (severe) obesity due to excess calories; E78.00 Pure hypercholesterolemia, unspecified; E11.69 Type 2 diabetes mellitus with other specified complication; M86.8X7 Other osteomyelitis, ankle and foot; E11.42 Type 2 diabetes mellitus with diabetic polyneuropathy; J45.909 Unspecified asthma, uncomplicated; Z89.422 Acquired absence of other left toe(s); Z89.412 Acquired absence of left great toe; Z68.38 Body mass index [BMI] 38.0-38.9, adult; Z79.4 Long term (current) use of insulin; Y83.5 Amputation of limb(s) as the cause of abnormal reaction of the patient, or of later complication, without mention of misadventure at the time of the procedure | CPT/HCPCS: 15275; Q4101 ==

== ENCOUNTER → 2017-08-31 | Outpatient (CLI) | payer OTHER | END | disposition home or self-care (01) | LOC: PMGWOUND 08:15 | DX: T87.89 Other complications of amputation stump (principal); E11.621 Type 2 diabetes mellitus with foot ulcer; L97.524 Non-pressure chronic ulcer of other part of left foot with necrosis of bone; E11.51 Type 2 diabetes mellitus with diabetic peripheral angiopathy without gangrene; F41.9 Anxiety disorder, unspecified; I10 Essential (primary) hypertension; F32.9 Major depressive disorder, single episode, unspecified; E66.01 Morbid (severe) obesity due to excess calories; E78.00 Pure hypercholesterolemia, unspecified; E11.69 Type 2 diabetes mellitus with other specified complication; M86.8X7 Other osteomyelitis, ankle and foot; I25.10 Atherosclerotic heart disease of native coronary artery without angina pectoris; E11.42 Type 2 diabetes mellitus with diabetic polyneuropathy; J45.909 Unspecified asthma, uncomplicated; Z89.422 Acquired absence of other left toe(s); Z89.412 Acquired absence of left great toe; Z68.38 Body mass index [BMI] 38.0-38.9, adult; Z79.4 Long term (current) use of insulin; Y83.5 Amputation of limb(s) as the cause of abnormal reaction of the patient, or of later complication, without mention of misadventure at the time of the procedure | CPT/HCPCS: 11042 ==

== ENCOUNTER → 2017-09-10 | Outpatient (CLI) | payer OTHER | END | disposition home or self-care (01) | LOC: PMGWOUND 07:44 | DX: T87.89 Other complications of amputation stump (principal); E11.621 Type 2 diabetes mellitus with foot ulcer; L97.524 Non-pressure chronic ulcer of other part of left foot with necrosis of bone; E11.51 Type 2 diabetes mellitus with diabetic peripheral angiopathy without gangrene; F41.9 Anxiety disorder, unspecified; I10 Essential (primary) hypertension; F32.9 Major depressive disorder, single episode, unspecified; E66.01 Morbid (severe) obesity due to excess calories; E78.00 Pure hypercholesterolemia, unspecified; E11.69 Type 2 diabetes mellitus with other specified complication; M86.8X7 Other osteomyelitis, ankle and foot; I25.10 Atherosclerotic heart disease of native coronary artery without angina pectoris; E11.42 Type 2 diabetes mellitus with diabetic polyneuropathy; J45.909 Unspecified asthma, uncomplicated; Z89.422 Acquired absence of other left toe(s); Z89.412 Acquired absence of left great toe; Z79.4 Long term (current) use of insulin; Z68.37 Body mass index [BMI] 37.0-37.9, adult; Y83.5 Amputation of limb(s) as the cause of abnormal reaction of the patient, or of later complication, without mention of misadventure at the time of the procedure | CPT/HCPCS: 15275; Q4101 ==

== ENCOUNTER → 2017-09-14 | Outpatient (CLI) | payer OTHER | END | disposition home or self-care (01) | LOC: PMGWOUND 12:35 | DX: E11.621 Type 2 diabetes mellitus with foot ulcer (principal); L97.524 Non-pressure chronic ulcer of other part of left foot with necrosis of bone; E11.51 Type 2 diabetes mellitus with diabetic peripheral angiopathy without gangrene; F41.9 Anxiety disorder, unspecified; I10 Essential (primary) hypertension; F32.9 Major depressive disorder, single episode, unspecified; E66.01 Morbid (severe) obesity due to excess calories; E78.00 Pure hypercholesterolemia, unspecified; E11.69 Type 2 diabetes mellitus with other specified complication; M86.8X7 Other osteomyelitis, ankle and foot; I25.10 Atherosclerotic heart disease of native coronary artery without angina pectoris; E11.42 Type 2 diabetes mellitus with diabetic polyneuropathy; J45.909 Unspecified asthma, uncomplicated; Z89.422 Acquired absence of other left toe(s); Z89.412 Acquired absence of left great toe; Z79.4 Long term (current) use of insulin; Z68.37 Body mass index [BMI] 37.0-37.9, adult | CPT/HCPCS: 99214 ==

== ENCOUNTER → 2017-09-17 | Outpatient (CLI) | payer OTHER | END | disposition home or self-care (01) | LOC: PMGWOUND 10:00 | DX: E11.621 Type 2 diabetes mellitus with foot ulcer (principal); L97.524 Non-pressure chronic ulcer of other part of left foot with necrosis of bone; E11.51 Type 2 diabetes mellitus with diabetic peripheral angiopathy without gangrene; F41.9 Anxiety disorder, unspecified; I10 Essential (primary) hypertension; F32.9 Major depressive disorder, single episode, unspecified; E66.01 Morbid (severe) obesity due to excess calories; E78.00 Pure hypercholesterolemia, unspecified; E11.69 Type 2 diabetes mellitus with other specified complication; M86.8X7 Other osteomyelitis, ankle and foot; I25.10 Atherosclerotic heart disease of native coronary artery without angina pectoris; E11.42 Type 2 diabetes mellitus with diabetic polyneuropathy; J45.909 Unspecified asthma, uncomplicated; Z89.422 Acquired absence of other left toe(s); Z89.412 Acquired absence of left great toe; Z79.4 Long term (current) use of insulin; Z68.37 Body mass index [BMI] 37.0-37.9, adult | CPT/HCPCS: 97597 ==

== ENCOUNTER → 2017-09-24 | Outpatient (CLI) | payer OTHER | END | disposition home or self-care (01) | LOC: PMGWOUND 10:14 | DX: E11.621 Type 2 diabetes mellitus with foot ulcer (principal); L97.524 Non-pressure chronic ulcer of other part of left foot with necrosis of bone; E11.51 Type 2 diabetes mellitus with diabetic peripheral angiopathy without gangrene; F41.9 Anxiety disorder, unspecified; I10 Essential (primary) hypertension; F32.9 Major depressive disorder, single episode, unspecified; E66.01 Morbid (severe) obesity due to excess calories; E78.00 Pure hypercholesterolemia, unspecified; E11.69 Type 2 diabetes mellitus with other specified complication; M86.8X7 Other osteomyelitis, ankle and foot; I25.10 Atherosclerotic heart disease of native coronary artery without angina pectoris; E11.42 Type 2 diabetes mellitus with diabetic polyneuropathy; J45.909 Unspecified asthma, uncomplicated; Z89.422 Acquired absence of other left toe(s); Z89.412 Acquired absence of left great toe; Z79.4 Long term (current) use of insulin; Z68.37 Body mass index [BMI] 37.0-37.9, adult | CPT/HCPCS: 97597 ==

== ENCOUNTER → 2017-10-05 | Outpatient (CLI) | payer OTHER ==
[2017-10-05 14:03] LABS: POC GLUCOSE 136 mg/dL (70-99)
== END | disposition home or self-care (01) ==
LOC: PMGWOUND 13:24
DX: E11.621 Type 2 diabetes mellitus with foot ulcer (principal); L97.524 Non-pressure chronic ulcer of other part of left foot with necrosis of bone; E11.51 Type 2 diabetes mellitus with diabetic peripheral angiopathy without gangrene; E11.649 Type 2 diabetes mellitus with hypoglycemia without coma; F41.9 Anxiety disorder, unspecified; I10 Essential (primary) hypertension; F32.9 Major depressive disorder, single episode, unspecified; E66.01 Morbid (severe) obesity due to excess calories; E78.00 Pure hypercholesterolemia, unspecified; E11.69 Type 2 diabetes mellitus with other specified complication; M86.8X7 Other osteomyelitis, ankle and foot; I25.10 Atherosclerotic heart disease of native coronary artery without angina pectoris; E11.42 Type 2 diabetes mellitus with diabetic polyneuropathy; J45.909 Unspecified asthma, uncomplicated; Z89.422 Acquired absence of other left toe(s); Z89.412 Acquired absence of left great toe; Z79.4 Long term (current) use of insulin; Z68.37 Body mass index [BMI] 37.0-37.9, adult
CPT/HCPCS: 82962; 97597

== ENCOUNTER → 2017-10-19 | Outpatient (CLI) | payer OTHER | END | disposition home or self-care (01) | LOC: PMGWOUND 12:30 | DX: E11.621 Type 2 diabetes mellitus with foot ulcer (principal); L97.524 Non-pressure chronic ulcer of other part of left foot with necrosis of bone; F41.9 Anxiety disorder, unspecified; I25.10 Atherosclerotic heart disease of native coronary artery without angina pectoris; F32.9 Major depressive disorder, single episode, unspecified; I10 Essential (primary) hypertension; E66.01 Morbid (severe) obesity due to excess calories; E11.69 Type 2 diabetes mellitus with other specified complication; M86.8X7 Other osteomyelitis, ankle and foot; E78.00 Pure hypercholesterolemia, unspecified; E11.42 Type 2 diabetes mellitus with diabetic polyneuropathy; E11.51 Type 2 diabetes mellitus with diabetic peripheral angiopathy without gangrene; J45.909 Unspecified asthma, uncomplicated; Z68.38 Body mass index [BMI] 38.0-38.9, adult; Z89.422 Acquired absence of other left toe(s); Z89.412 Acquired absence of left great toe; Z68.37 Body mass index [BMI] 37.0-37.9, adult; Z79.4 Long term (current) use of insulin | CPT/HCPCS: 97597 ==

== ENCOUNTER → 2017-10-27 | Outpatient (CLI) | payer OTHER | END | disposition home or self-care (01) | LOC: PMGWOUND 09:30 | DX: T87.89 Other complications of amputation stump (principal); E11.621 Type 2 diabetes mellitus with foot ulcer; L97.524 Non-pressure chronic ulcer of other part of left foot with necrosis of bone; F41.9 Anxiety disorder, unspecified; I25.10 Atherosclerotic heart disease of native coronary artery without angina pectoris; F32.9 Major depressive disorder, single episode, unspecified; L84 Corns and callosities; I10 Essential (primary) hypertension; E66.01 Morbid (severe) obesity due to excess calories; E11.69 Type 2 diabetes mellitus with other specified complication; M86.8X7 Other osteomyelitis, ankle and foot; E78.00 Pure hypercholesterolemia, unspecified; E11.42 Type 2 diabetes mellitus with diabetic polyneuropathy; E11.51 Type 2 diabetes mellitus with diabetic peripheral angiopathy without gangrene; J45.909 Unspecified asthma, uncomplicated; Z68.38 Body mass index [BMI] 38.0-38.9, adult; Z89.422 Acquired absence of other left toe(s); Z89.412 Acquired absence of left great toe; Z68.37 Body mass index [BMI] 37.0-37.9, adult; Z79.4 Long term (current) use of insulin; Y83.5 Amputation of limb(s) as the cause of abnormal reaction of the patient, or of later complication, without mention of misadventure at the time of the procedure | CPT/HCPCS: 97597 ==

== ENCOUNTER → 2017-11-10 | Outpatient (CLI) | payer OTHER | END | disposition home or self-care (01) | LOC: PMGWOUND 10:25 | DX: T87.89 Other complications of amputation stump (principal); E11.621 Type 2 diabetes mellitus with foot ulcer; L97.524 Non-pressure chronic ulcer of other part of left foot with necrosis of bone; F41.9 Anxiety disorder, unspecified; I25.10 Atherosclerotic heart disease of native coronary artery without angina pectoris; F32.9 Major depressive disorder, single episode, unspecified; L84 Corns and callosities; I10 Essential (primary) hypertension; E66.01 Morbid (severe) obesity due to excess calories; E11.69 Type 2 diabetes mellitus with other specified complication; M86.8X7 Other osteomyelitis, ankle and foot; E78.00 Pure hypercholesterolemia, unspecified; E11.42 Type 2 diabetes mellitus with diabetic polyneuropathy; E11.51 Type 2 diabetes mellitus with diabetic peripheral angiopathy without gangrene; J45.909 Unspecified asthma, uncomplicated; Z68.38 Body mass index [BMI] 38.0-38.9, adult; Z89.422 Acquired absence of other left toe(s); Z89.412 Acquired absence of left great toe; Z68.37 Body mass index [BMI] 37.0-37.9, adult; Z79.4 Long term (current) use of insulin; Y83.5 Amputation of limb(s) as the cause of abnormal reaction of the patient, or of later complication, without mention of misadventure at the time of the procedure | CPT/HCPCS: 11042 ==

== ENCOUNTER → 2017-11-24 | Outpatient (CLI) | payer OTHER | END | disposition home or self-care (01) | LOC: PMGWOUND 10:47 | DX: E11.621 Type 2 diabetes mellitus with foot ulcer (principal); L97.524 Non-pressure chronic ulcer of other part of left foot with necrosis of bone; F41.9 Anxiety disorder, unspecified; I25.10 Atherosclerotic heart disease of native coronary artery without angina pectoris; F32.9 Major depressive disorder, single episode, unspecified; L84 Corns and callosities; I10 Essential (primary) hypertension; E66.01 Morbid (severe) obesity due to excess calories; E11.69 Type 2 diabetes mellitus with other specified complication; M86.8X7 Other osteomyelitis, ankle and foot; E78.00 Pure hypercholesterolemia, unspecified; E11.42 Type 2 diabetes mellitus with diabetic polyneuropathy; J45.909 Unspecified asthma, uncomplicated; E11.51 Type 2 diabetes mellitus with diabetic peripheral angiopathy without gangrene; Z68.38 Body mass index [BMI] 38.0-38.9, adult; Z89.422 Acquired absence of other left toe(s); Z89.412 Acquired absence of left great toe; Z68.37 Body mass index [BMI] 37.0-37.9, adult; Z79.4 Long term (current) use of insulin | CPT/HCPCS: 11042 ==

== ENCOUNTER → 2017-11-30 | Outpatient (CLI) | payer OTHER | END | disposition home or self-care (01) | LOC: PMGWOUND 12:13 | DX: E11.621 Type 2 diabetes mellitus with foot ulcer (principal); L97.524 Non-pressure chronic ulcer of other part of left foot with necrosis of bone; F41.9 Anxiety disorder, unspecified; I25.10 Atherosclerotic heart disease of native coronary artery without angina pectoris; F32.9 Major depressive disorder, single episode, unspecified; L84 Corns and callosities; I10 Essential (primary) hypertension; E66.01 Morbid (severe) obesity due to excess calories; E11.69 Type 2 diabetes mellitus with other specified complication; M86.8X7 Other osteomyelitis, ankle and foot; E78.00 Pure hypercholesterolemia, unspecified; E11.42 Type 2 diabetes mellitus with diabetic polyneuropathy; J45.909 Unspecified asthma, uncomplicated; E11.51 Type 2 diabetes mellitus with diabetic peripheral angiopathy without gangrene; Z68.38 Body mass index [BMI] 38.0-38.9, adult; Z89.422 Acquired absence of other left toe(s); Z89.412 Acquired absence of left great toe; Z68.37 Body mass index [BMI] 37.0-37.9, adult; Z79.4 Long term (current) use of insulin | CPT/HCPCS: 99214 ==

== ENCOUNTER → 2018-01-07 | Outpatient (CLI) | payer OTHER | END | disposition home or self-care (01) | LOC: PMGWOUND 08:00 | DX: E11.621 Type 2 diabetes mellitus with foot ulcer (principal); L97.524 Non-pressure chronic ulcer of other part of left foot with necrosis of bone; F41.9 Anxiety disorder, unspecified; I25.10 Atherosclerotic heart disease of native coronary artery without angina pectoris; F32.9 Major depressive disorder, single episode, unspecified; L84 Corns and callosities; I10 Essential (primary) hypertension; E66.01 Morbid (severe) obesity due to excess calories; E11.69 Type 2 diabetes mellitus with other specified complication; M86.8X7 Other osteomyelitis, ankle and foot; E78.00 Pure hypercholesterolemia, unspecified; E11.42 Type 2 diabetes mellitus with diabetic polyneuropathy; J45.909 Unspecified asthma, uncomplicated; E11.51 Type 2 diabetes mellitus with diabetic peripheral angiopathy without gangrene; Z89.422 Acquired absence of other left toe(s); Z89.412 Acquired absence of left great toe; Z68.38 Body mass index [BMI] 38.0-38.9, adult; Z79.4 Long term (current) use of insulin | CPT/HCPCS: 73630; 99214 ==

== ENCOUNTER → 2018-01-11 | Outpatient (CLI) | payer OTHER | END | disposition home or self-care (01) | LOC: PMGWOUND 12:00 | DX: E11.621 Type 2 diabetes mellitus with foot ulcer (principal); L97.524 Non-pressure chronic ulcer of other part of left foot with necrosis of bone; F41.9 Anxiety disorder, unspecified; I25.10 Atherosclerotic heart disease of native coronary artery without angina pectoris; F32.9 Major depressive disorder, single episode, unspecified; L84 Corns and callosities; I10 Essential (primary) hypertension; E66.01 Morbid (severe) obesity due to excess calories; E11.69 Type 2 diabetes mellitus with other specified complication; M86.8X7 Other osteomyelitis, ankle and foot; E78.00 Pure hypercholesterolemia, unspecified; E11.42 Type 2 diabetes mellitus with diabetic polyneuropathy; J45.909 Unspecified asthma, uncomplicated; E11.51 Type 2 diabetes mellitus with diabetic peripheral angiopathy without gangrene; Z89.422 Acquired absence of other left toe(s); Z89.412 Acquired absence of left great toe; Z68.38 Body mass index [BMI] 38.0-38.9, adult; Z79.4 Long term (current) use of insulin | CPT/HCPCS: 29445 ==

== ENCOUNTER → 2018-01-14 | Outpatient (CLI) | payer OTHER ==
[2017-08-05 10:15] VITALS: BP 140/70
[~2018-01-14] MED LIST changes: +ALBU2.5V5 NEB; +DOCU50CA9 PO; +ERGO500027 PO; +FENO160T PO; +GLIP-112 PO; -HYDROmorphone 2 MG/ML VIAL IV; +INSU100I30 SQ; -INSULIN ASPART 100 UNIT/ML 10ML VIAL. SQ; -INSULIN REGULAR 100 UNIT/ML 10ML VIAL. IV; -LIDOCAINE 1% PF 2 ML VIAL. ID; +LIRA0.6P2 SQ; +LISI10TA2 PO; -MIDAZOLAM HCL/PF 2 MG/2 ML VIAL.; -MORPHINE SULFATE 2 MG/ML DISP.SYRIN. IV; -NEOMY/BACITR/POLYMYXIN OINT PACKET. TP; -ONDANSETRON PF 4 MG/2 ML VIAL. IV; +OXYC-327 PO; -PROCHLORPERAZINE 10 MG/2 ML VIAL. IV; +RIVA15TA PO; +TEST200V3 IM; -ceFAZolin 2GM PREMIX 2 GM/50 ML BAG IV; -fentaNYL PF VIAL 100 MCG/2 ML VIAL; -fentaNYL PF VIAL 100 MCG/2 ML VIAL IV; -fentaNYL PF VIAL 250 MCG/5 ML VIAL
== END | disposition home or self-care (01) ==
LOC: PMGWOUND 09:08
PROVIDERS: ATTEND Emergency Medicine Undersea and Hyperbaric Medicine
DX: E11.621 Type 2 diabetes mellitus with foot ulcer (principal); L97.524 Non-pressure chronic ulcer of other part of left foot with necrosis of bone; F41.9 Anxiety disorder, unspecified; I25.10 Atherosclerotic heart disease of native coronary artery without angina pectoris; F32.9 Major depressive disorder, single episode, unspecified; L84 Corns and callosities; I10 Essential (primary) hypertension; E66.01 Morbid (severe) obesity due to excess calories; E11.69 Type 2 diabetes mellitus with other specified complication; M86.8X7 Other osteomyelitis, ankle and foot; E78.00 Pure hypercholesterolemia, unspecified; E11.42 Type 2 diabetes mellitus with diabetic polyneuropathy; J45.909 Unspecified asthma, uncomplicated; E11.51 Type 2 diabetes mellitus with diabetic peripheral angiopathy without gangrene; Z89.422 Acquired absence of other left toe(s); Z89.412 Acquired absence of left great toe; Z68.38 Body mass index [BMI] 38.0-38.9, adult; Z79.4 Long term (current) use of insulin
CPT/HCPCS: 29445; 97597

== ENCOUNTER → 2018-01-21 | Outpatient (CLI) | payer OTHER ==
[2017-08-05 10:15] VITALS: BP 140/70
== END | disposition home or self-care (01) ==
LOC: PMGWOUND 09:22
PROVIDERS: ATTEND Emergency Medicine Undersea and Hyperbaric Medicine
DX: E11.621 Type 2 diabetes mellitus with foot ulcer (principal); L97.524 Non-pressure chronic ulcer of other part of left foot with necrosis of bone; E11.622 Type 2 diabetes mellitus with other skin ulcer; L97.821 Non-pressure chronic ulcer of other part of left lower leg limited to breakdown of skin; L89.893 Pressure ulcer of other site, stage 3; E11.42 Type 2 diabetes mellitus with diabetic polyneuropathy; E11.51 Type 2 diabetes mellitus with diabetic peripheral angiopathy without gangrene; E66.01 Morbid (severe) obesity due to excess calories; E11.69 Type 2 diabetes mellitus with other specified complication; M86.8X7 Other osteomyelitis, ankle and foot; I25.10 Atherosclerotic heart disease of native coronary artery without angina pectoris; E78.00 Pure hypercholesterolemia, unspecified; I10 Essential (primary) hypertension; E78.5 Hyperlipidemia, unspecified; L84 Corns and callosities; J45.909 Unspecified asthma, uncomplicated; C85.90 Non-Hodgkin lymphoma, unspecified, unspecified site; F41.9 Anxiety disorder, unspecified; F32.9 Major depressive disorder, single episode, unspecified; Z79.4 Long term (current) use of insulin; Z89.412 Acquired absence of left great toe; Z68.38 Body mass index [BMI] 38.0-38.9, adult; Z89.422 Acquired absence of other left toe(s)
CPT/HCPCS: 99214; G0463

== ENCOUNTER → 2018-01-26 | Outpatient (CLI) | payer OTHER ==
[2017-08-05 10:15] VITALS: BP 140/70
== END | disposition home or self-care (01) ==
LOC: PMGWOUND 13:11
PROVIDERS: ATTEND Emergency Medicine Undersea and Hyperbaric Medicine
DX: E11.621 Type 2 diabetes mellitus with foot ulcer (principal); L97.522 Non-pressure chronic ulcer of other part of left foot with fat layer exposed; E11.42 Type 2 diabetes mellitus with diabetic polyneuropathy; E11.51 Type 2 diabetes mellitus with diabetic peripheral angiopathy without gangrene; E11.69 Type 2 diabetes mellitus with other specified complication; M86.8X7 Other osteomyelitis, ankle and foot; E78.00 Pure hypercholesterolemia, unspecified; I25.10 Atherosclerotic heart disease of native coronary artery without angina pectoris; E78.5 Hyperlipidemia, unspecified; E66.01 Morbid (severe) obesity due to excess calories; I10 Essential (primary) hypertension; L84 Corns and callosities; C85.90 Non-Hodgkin lymphoma, unspecified, unspecified site; J45.909 Unspecified asthma, uncomplicated; F32.9 Major depressive disorder, single episode, unspecified; F41.9 Anxiety disorder, unspecified; Z68.38 Body mass index [BMI] 38.0-38.9, adult; Z89.412 Acquired absence of left great toe; Z89.422 Acquired absence of other left toe(s); Z79.4 Long term (current) use of insulin
CPT/HCPCS: 99214; G0463

== ENCOUNTER → 2018-01-29 | Outpatient (CLI) | payer OTHER ==
[2017-08-05 10:15] VITALS: BP 140/70
== END | disposition home or self-care (01) ==
LOC: PMGWOUND 08:57
PROVIDERS: ATTEND Preventive Medicine Undersea and Hyperbaric Medicine
DX: E11.621 Type 2 diabetes mellitus with foot ulcer (principal); L97.514 Non-pressure chronic ulcer of other part of right foot with necrosis of bone; E11.42 Type 2 diabetes mellitus with diabetic polyneuropathy; E11.51 Type 2 diabetes mellitus with diabetic peripheral angiopathy without gangrene; E78.00 Pure hypercholesterolemia, unspecified; E11.69 Type 2 diabetes mellitus with other specified complication; M86.8X7 Other osteomyelitis, ankle and foot; J45.909 Unspecified asthma, uncomplicated; I25.10 Atherosclerotic heart disease of native coronary artery without angina pectoris; L84 Corns and callosities; E78.4 Other hyperlipidemia; I10 Essential (primary) hypertension; C85.90 Non-Hodgkin lymphoma, unspecified, unspecified site; F41.9 Anxiety disorder, unspecified; F32.9 Major depressive disorder, single episode, unspecified; Z89.412 Acquired absence of left great toe; Z89.422 Acquired absence of other left toe(s); Z79.4 Long term (current) use of insulin
CPT/HCPCS: 99213

== ENCOUNTER → 2018-02-02 | Outpatient (CLI) | payer OTHER ==
[2017-08-05 10:15] VITALS: BP 140/70
== END | disposition home or self-care (01) ==
LOC: PMGWOUND 11:10
PROVIDERS: ATTEND Emergency Medicine Undersea and Hyperbaric Medicine
DX: E11.621 Type 2 diabetes mellitus with foot ulcer (principal); L97.524 Non-pressure chronic ulcer of other part of left foot with necrosis of bone; L97.518 Non-pressure chronic ulcer of other part of right foot with other specified severity; E11.51 Type 2 diabetes mellitus with diabetic peripheral angiopathy without gangrene; E11.42 Type 2 diabetes mellitus with diabetic polyneuropathy; E11.69 Type 2 diabetes mellitus with other specified complication; M86.8X7 Other osteomyelitis, ankle and foot; E78.00 Pure hypercholesterolemia, unspecified; J45.909 Unspecified asthma, uncomplicated; I25.10 Atherosclerotic heart disease of native coronary artery without angina pectoris; E78.4 Other hyperlipidemia; L84 Corns and callosities; I10 Essential (primary) hypertension; C85.90 Non-Hodgkin lymphoma, unspecified, unspecified site; F41.9 Anxiety disorder, unspecified; Z79.4 Long term (current) use of insulin; Z89.412 Acquired absence of left great toe; Z89.422 Acquired absence of other left toe(s)
CPT/HCPCS: 99213

== ENCOUNTER → 2020-10-24 | Outpatient (CLI) | payer MEDICARE ==
[2017-08-05 10:15] VITALS: BP 140/70
[~2020-10-24] MED LIST changes: -GLIP-112 PO; +GLIP10TA24 PO; +LISI10TA16 PO; -LISI10TA2 PO; -OXYC-327 PO; +OXYC1TAB19 PO; +ZOLPIDEM 5 MG TABLET. PO ONE
--- NOTE | 2020-10-25 09:14 | SLEEP ---
DATE OF STUDY: 10/24/2020 SLEEP STUDY ATTENDING PHYSICIAN: Christine Patel MD. The patient is a 55-year-old who weighs 388 pounds with a BMI of 42. The patient's Garrison score was 11. The patient underwent diagnostic sleep study performed at [facility]. During the night of the study, the patient spent 412 minutes in bed and slept for 233 minutes with a low sleep efficiency of 56%. Sleep latency was 35 minutes with a REM latency of 43 minutes. Sleep architecture showed increased stage I and stage II sleep, normal slow wave and normal REM sleep. During the night study, the patient had 7 obstructive apneas, no mixed apneas, 4 central apneas and 27 hypopneas. The patient's AHI was 10 per hour with a supine AHI of 13 per hour and REM AHI of 29 per hour. EKG monitoring revealed normal sinus rhythm, average heart rate 81 beats per minute, no sustained arrhythmias observed. No PLMs seen. Nocturnal oximetry study revealed a mean oxygen saturation of 96% with the lowest of 87%. 6% time oxygen saturation remained between 80% and 89%. Due to low AHI, the patient did not meet the split night criteria for CPAP initiation. IMPRESSION: 1. Mild obstructive sleep apnea with worsening during REM sleep. Total AHI of 10 per hour with a REM AHI of 29 per hour. 2. Nocturnal hypoxia, which is mild, secondary to obstructive sleep apnea. 3. No clinically significant periodic limb movements. RECOMMENDATIONS: 1. The patient is clinically symptomatic with an Garrison score of 11. The patient would benefit from treatment of sleep apnea with CPAP. Alternate treatment option includes oral appliance as recommended by the dentist. 2. Once the patient is optimally, then follow up in 4-6 weeks to assess compliance with treatment and to document clinical improvement. 3. Weight loss is advised. 4. Avoid SUPERVISOR SPINNING depressants. 5. Cautioned regarding driving until symptoms of sleep apnea resolve with the use of CPAP. TRAE/YAZAN DR: Leesa TID: [id number] CC: CHRISTINE PATEL MD
== END ==
LOC: SLPLAB 19:05
PROVIDERS: ATTEND Family Medicine
DX: G47.33 Obstructive sleep apnea (adult) (pediatric) (principal); G47.34 Idiopathic sleep related nonobstructive alveolar hypoventilation
CPT/HCPCS: 95810

== ENCOUNTER → 2020-11-29 | Outpatient (CLI) | payer MEDICARE ==
[2017-08-05 10:15] VITALS: BP 140/70
--- NOTE | 2020-12-03 12:48 | SLEEP ---
DATE OF STUDY: 11/29/2020 ATTENDING PHYSICIAN: Dr. Christine Patel. The patient is a 55-year-old who weighs 400 pounds with a BMI of 43. The patient's [place] score was 12. The patient underwent a sleep study previously at [facility] and was found to have mild BOO with worsening during REM sleep. Total AHI was 10 per hour with a REM AHI of 29 per hour. The patient will return for CPAP titration study. During the night study, the patient spent 429 minutes in bed and slept for 236 minutes with a low sleep efficiency of 55%. Sleep latency was 54 minutes with absent REM sleep. Sleep architecture showed increased stage 1 and stage 2 sleep, normal N3 sleep and absent REM sleep. EKG monitoring revealed no sustained arrhythmias. PLMS were seen at index of 21 per hour, but only 1 per hour caused EEG arousals. The patient was started on CPAP at 5 cm water and titrated to 7 cm water. At the final pressure, the patient slept for 220 minutes. The patient had supine sleep, but no REM sleep. The patient's AHI was reduced to 1 per hour and oxygen saturation remained above 88%. The patient used a small size full face mask. IMPRESSION: 1. Sleep apnea diagnosed by previous sleep study. 2. Mild to moderate PLMs. RECOMMENDATIONS: 1. CPAP at 7 cm water completely eliminated the patient's sleep apnea and should be used on a nightly basis. The patient used a small size full face mask. 2. Follow up in 4-6 weeks to assess compliance with CPAP and to document clinical improvement. 3. Weight loss is strongly advised. 4. Avoid HEAD PAPER TESTER depressants. 5. Caution regarding driving until symptoms of sleep apnea resolve with the use of CPAP. 6. PLMS does not need to be treated unless the patient has symptoms of restless legs during the day. NITIN DR: Leesa TID: [id number] CC: CHRISTINE PATEL MD
== END ==
LOC: RT 19:21
PROVIDERS: ATTEND Family Medicine
DX: G47.33 Obstructive sleep apnea (adult) (pediatric) (principal)
CPT/HCPCS: 95811

== ENCOUNTER → 2021-04-19 | Outpatient (CLI) | payer MEDICARE ==
[2017-08-05 10:15] VITALS: BP 140/70
[~2021-04-19] MED LIST changes: -ZOLPIDEM 5 MG TABLET. PO ONE
--- NOTE | 2021-04-19 16:16 | RAD ---
04/19/2021 Ankle-brachial indices. Left lower extremity arterial duplex ultrasound Indication: Nonhealing wound, left heel COMPARISON STUDY: None Discussion: Blood pressure measurements were obtained in the upper arms and ankles bilaterally. Right brachial pressure: 1 40 mmHg Left brachial pressure: 1 36 mmHg Right posterior tibial pressure 1 32 mmHg Left posterior tibial pressure 1 34 mmHg Right dorsalis pedis pressure: 1 37 mmHg Left dorsalis pedis pressure: 1 36 mmHg Right ERIC: 0.97 Left ERIC: 0.97 Ultrasound evaluation of the major arteries of the left lower extremity was performed including color Doppler imaging spectral analysis. Normal waveform morphology and velocities are seen throughout the major arteries of the left lower ex tremity. No focal area of increased velocity suggestive of a hemodynamically significant stenosis is identified. No focal visual stenosis or occlusion is seen on color Doppler imaging. No aneurysms are identified. IMPRESSION: 1. Normal ankle brachial indices 2. No sonographic evidence of hemodynamically significant stenosis involving the major arteries of th e left lower extremity Electronically signed by: Ephraim Cross MD (04/19/2021 4:13 PM) [id number]
== END ==
LOC: US 12:32
PROVIDERS: ATTEND Preventive Medicine Undersea and Hyperbaric Medicine
DX: E11.621 Type 2 diabetes mellitus with foot ulcer (principal)
CPT/HCPCS: 93922; 93926